=== PATIENT | male | born 1975 | race Caucasian/White ===

== ENCOUNTER 2016-10-02 17:08 | Emergency (ER) | payer SELFPAY | END 2016-10-02 17:30 | disposition home or self-care (01) | LOC: ER1 17:08 | DX: Z53.21 Procedure and treatment not carried out due to patient leaving prior to being seen by health care provider (principal) ==

== ENCOUNTER 2016-10-02 21:20 | Emergency (ER) | payer OTHER | END 2016-10-03 04:00 | disposition home or self-care (01) | LOC: ER1 21:20 | DX: S46.912A Strain of unspecified muscle, fascia and tendon at shoulder and upper arm level, left arm, initial encounter (principal); M50.322 Other cervical disc degeneration at C5-C6 level; M25.522 Pain in left elbow; F17.210 Nicotine dependence, cigarettes, uncomplicated; Z88.5 Allergy status to narcotic agent; Z79.1 Long term (current) use of non-steroidal anti-inflammatories (NSAID); X58.XXXA Exposure to other specified factors, initial encounter; Y93.67 Activity, basketball; Y99.8 Other external cause status | CPT/HCPCS: 72070; 72100; 72125; 96374; 99284; J2270 ==

== ENCOUNTER 2021-02-17 18:24 | Emergency (ER) | payer OTHER ==
[~2021-02-17 18:24] MED LIST: FLEXERIL 10 MG10 MG PO; NORCO 5-325 TA1 EACH PO
[2021-02-17 19:20] LABS: HEMOGLOBIN 14.9 gm/dl (14.0-17.5); RED BLOOD COUNT 4.75 M/UL (4.20-5.50); WHITE BLOOD COUNT 8.5 K/UL (4.5-11.0)
[2021-02-17 19:37] LABS: BUN/CREATININE RATIO 14 (0-10)
[2021-02-17] MEDS ORDERED: BACTRIM DS TAB1 EACH PO (21:25)
== END 2021-02-17 21:29 | disposition home or self-care (01) ==
LOC: ER1 18:24
PROVIDERS: Physician Assistant
DX: S51.811D Laceration without foreign body of right forearm, subsequent encounter (principal)
CPT/HCPCS: 80053; 83605; 85025; 85652; 86140; 99283

== ENCOUNTER 2021-06-16 17:01 | Emergency (ER) | payer OTHER ==
[~2021-06-16 17:01] MED LIST changes: +BACTRIM DS TAB1 EACH PO
[2021-06-16] MEDS ORDERED: HYDROCODON-ACE1 EAC4 PO (21:00)
== END 2021-06-16 21:15 | disposition home or self-care (01) ==
LOC: ER1 17:01
DX: S13.4XXA Sprain of ligaments of cervical spine, initial encounter (principal); S33.5XXA Sprain of ligaments of lumbar spine, initial encounter; V49.3XXA Car occupant (driver) (passenger) injured in unspecified nontraffic accident, initial encounter
CPT/HCPCS: 70450; 72125; 72128; 72131; 99284